=== PATIENT | male | born 1960 | race African-American/Black ===

== ENCOUNTER 2017-01-18 18:19 | Emergency (ER) | payer MEDICAID ==
[~2017-01-18] VITALS: Ht 170.2 cm; Wt 97.5 kg
[2017-01-18] MEDS ORDERED: [UNRECOGNIZED DRUG - REMARK] (19:13)
[2017-01-18] MEDS ORDERED: IBUPROFEN 600MG TABLET PO ONE (22:45)
[2017-01-18 23:08] VITALS: BP 152/74
== END 2017-01-19 01:23 | disposition home or self-care (01) ==
LOC: ER 18:20
DX: L03.114 Cellulitis of left upper limb (principal); F17.200 Nicotine dependence, unspecified, uncomplicated; Z98.890 Other specified postprocedural states
CPT/HCPCS: 73130; 99284

== ENCOUNTER 2020-01-15 19:31 | Emergency (ER) | payer MEDICAID ==
[~2020-01-15] VITALS: Ht 175.3 cm; Wt 96.0 kg
[~2020-01-15 19:31] MED LIST: [UNRECOGNIZED DRUG - REMARK]
[2020-01-15] MEDS ORDERED: IBUPROFEN 600MG TABLET PO ONE (20:00)
[2020-01-15 20:11] VITALS: BP 147/91
== END 2020-01-15 20:17 | disposition home or self-care (01) ==
LOC: ER 19:31
DX: S03.2XXA Dislocation of tooth, initial encounter (principal); K08.89 Other specified disorders of teeth and supporting structures; Z98.890 Other specified postprocedural states; X58.XXXA Exposure to other specified factors, initial encounter; Y93.89 Activity, other specified; Y92.89 Other specified places as the place of occurrence of the external cause; Y99.8 Other external cause status
CPT/HCPCS: 99283